=== PATIENT | female | born 1990 | race Two or more races ===

== ENCOUNTER 2022-06-22 18:29 | Inpatient (IN) ==
[2022-06-22] MEDS ORDERED: Lactated Ringers 1000 ml BAG 1,000 ML IV ONE (19:04)
[2022-06-22] MEDS ORDERED: Nalbuphine 10 MG/ML 1 ML VIAL IV PRN (19:04)
[2022-06-22] MEDS ORDERED: Dinoprostone 10 MG VAG.SUPP VAGINAL ONE (19:04)
[2022-06-22] MEDS ORDERED: Buffered Lidocaine 1% SYRIN 1 ml INTRADERM ONE (19:04)
[2022-06-22] MEDS ORDERED: Promethazine INJ(RESTRICTED) 25 MG/ML 1 ml VIAL IV PRN (19:04)
[2022-06-22] MEDS ORDERED: Insulin NPH 100 units/ml SUBCUT ONE (19:25)
[2022-06-22 21:02] LABS: Urine Benzodiazepine Screen None Detected (None Detect); Urine Cannabinoids Screen None Detected (None Detect); Urine Opiates Screen None Detected (None Detect)
[2022-06-22] MEDS ORDERED: Promethazine INJ(RESTRICTED) 25 MG/ML 1 ml VIAL IM ONE (23:00)
[2022-06-22] MEDS ORDERED: Morphine 10 MG/ML VIAL (1 ml) IM ONE (23:00)
[2022-06-23] MEDS ORDERED: Oxytocin in LR 20,000 MILLI.UNIT/1,000 ML BAG IV SCH (10:15)
[2022-06-23 10:34] LABS: ABS Basophils 0.1 10^3/ul (0-0.2); ABS Eosinophils 0.1 10^3/ul (0-0.6); ABS Lymphocytes 1.9 10^3/ul (1.0-4.8); ABS Monocytes 0.9 10^3/ul (0-0.8); ABS Neutrophils 9.4 10^3/ul (1.5-7.7); Eosinophil % 0.5 %; Hematocrit 34 % (35-47); Hemoglobin 11.6 g/dL (12.0-16.0); Lymphocyte % 15.2 %; Mean Corpuscular HGB Conc 34 g/dL (31-36); Mean Corpuscular Hemoglobin 27 pg (27-31); Mean Corpuscular Volume 80 fL (80-97); Platelet Count 114 10^3/uL (150-450); Red Blood Count 4.33 10^6 /uL (3.70-4.87); Red Cell Distribution Width 16 % (10-15); White Blood Count 12.3 10^3/uL (3.5-10.8)
[2022-06-23] MEDS: Lactated Ringers 1000 ml BAG 1,000 ML IV SCH ×2 (10:45→18:04)
[2022-06-24] MEDS ORDERED: Morphine 10 MG/ML VIAL (1 ml) IV PRN (06:18)
[2022-06-24] MEDS: Lactated Ringers 1000 ml BAG 1,000 ML IV SCH ×4 (07:05→15:33)
[2022-06-24] MEDS ORDERED: EPINEPHrine SULFITE FREE 1 MG/ML ONE (07:40)
[2022-06-24] MEDS ORDERED: OBEPIDURAL (200 ML) 200 ML EPIDURAL ONE (07:40)
[2022-06-24] MEDS ORDERED: Lidocaine 1% VIAL 10 MG/ML VIAL 30 ML ONE ×2 (07:40→20:41)
[2022-06-24] MEDS ORDERED: Sodium Citrate/Citric Acid LIQ 15 ML UDC PO PRN (08:11)
[2022-06-24] MEDS ORDERED: Phenylephrine 40 mcg/mL 10mL (400mcg) SYRINGE IV PUSH PRN ×3 (08:11→12:23)
[2022-06-24] MEDS ORDERED: Lactated Ringers 1000 ml BAG 1,000 ML IV ONE (08:11)
[2022-06-24] MEDS ORDERED: Influenza vaccine *QUAD* *2022-23* 0.5 ML SYRINGE IM ONE (09:00)
[2022-06-24] MEDS ORDERED: OBEPIDURAL (200 ML) 200 ML EPIDURAL SCH (09:00)
[2022-06-24 09:12] LABS: Urine Appearance Clear; Urine Bilirubin Negative (Negative); Urine Color Yellow; Urine Glucose Negative (Negative); Urine Ketones Negative (Negative); Urine Nitrite Negative (Negative); Urine Protein Negative (Negative); Urine Specific Gravity 1.015 (1.005-1.030); Urine Urobilinogen 0.2 (Negative) (Negative); Urine pH 6.5 (5.0-9.0)
[2022-06-24 09:21] LABS: Urine Bacteria Absent (Absent); Urine Red Blood Cell 1+(3-5/hpf) (Absent); Urine Squamous Epithelial Cell Present (Absent); Urine White Blood Cell Trace(0-5/hpf) (Absent)
[2022-06-24] MEDS: Phenylephrine 40 mcg/mL 10mL (400mcg) SYRINGE IV PUSH PRN ×2 (09:36→09:41)
[2022-06-24] MEDS ORDERED: Dibucaine 1% OINT 28.35 GM TUBE PR PRN (18:33)
[2022-06-24] MEDS ORDERED: Witch Hazel PAD JAR TOPICAL PRN (18:33)
[2022-06-24] MEDS ORDERED: Glycerin ADULT 2.4 gm SUPP PR PRN (18:33)
[2022-06-24] MEDS ORDERED: Oxytocin in LR 20,000 MILLI.UNIT/1,000 ML BAG IV SCH (18:45)
[2022-06-24] MEDS ORDERED: Lactated Ringers 1000 ml BAG 1,000 ML IV SCH (19:00)
[2022-06-25 06:26] LABS: ABS Eosinophils 0.1 10^3/ul (0-0.6); ABS Lymphocytes 2.1 10^3/ul (1.0-4.8); ABS Monocytes 1.1 10^3/ul (0-0.8); ABS Neutrophils 9.8 10^3/ul (1.5-7.7); Eosinophil % 0.6 %; Hematocrit 30 % (35-47); Hemoglobin 10.1 g/dL (12.0-16.0); Lymphocyte % 15.9 %; Mean Corpuscular HGB Conc 34 g/dL (31-36); Mean Corpuscular Hemoglobin 27 pg (27-31); Mean Corpuscular Volume 80 fL (80-97); Mean Platelet Volume 10.1 fL (7.4-10.4); Platelet Count 94 10^3/uL (150-450); Red Blood Count 3.74 10^6 /uL (3.70-4.87); Red Cell Distribution Width 16 % (10-15); White Blood Count 13.2 10^3/uL (3.5-10.8)
[2022-06-26 07:38] VITALS: BP 103/58
== END 2022-06-26 12:00 | disposition home or self-care (01) | DRG 807 ==
LOC: MCHOBOUT 18:29 → MCHOB 19:31
PROVIDERS: ADMIT Obstetrics & Gynecology; ATTEND Obstetrics & Gynecology